=== PATIENT | male | born 2000 | race African-American/Black ===

== ENCOUNTER 2020-03-14 10:31 | Outpatient (REF) | payer BC, SELFPAY | END 2020-03-14 10:32 | disposition home or self-care (01) | LOC: HO.WFDLDS 10:31 | PROVIDERS: Visit Provider Internal Medicine | DX: Z20.822 Contact with and (suspected) exposure to COVID-19 (principal) | CPT/HCPCS: 36415; C9803; U0003 ==

== ENCOUNTER 2020-05-07 11:18 | Outpatient (REF) | payer BC, SELFPAY ==
[2020-05-07 12:27] LABS: Alanine Aminotransferase 27 U/L (0-40); Albumin Level 4.9 g/dL (3.5-5.0); Alkaline Phosphatase 55 U/L (39-117); Anion Gap 14 (12-20); Aspartate Amino Transferase 29 U/L (5-37); Bilirubin Total 1.4 mg/dL (0.0-1.0); Blood Urea Nitrogen 13 mg/dL (9-16); Calcium 9.7 mg/dL (8.4-10.2); Carbon Dioxide 28 mmol/L (22-29); Chloride 104 mmol/L (96-108); Cholesterol 140 mg/dL; Estimated Glomerular Filt Rate > 60; Glucose Fasting 79 mg/dL (60-99); HDL Cholesterol 48 mg/dL; LDL Cholesterol Calculated 78 mg/dl; Potassium 4.6 mmol/L (3.3-5.1); Sodium 141 mmol/L (135-145); Total Protein 7.5 g/dL (6.5-8.0); Triglycerides 74 mg/dL
[2020-05-07 12:28] LABS: Creatinine Urine 235.86 mg/dL; Microalbum/Creatinine Ratio Ur 4.2 ug/mg cr
[2020-05-07 12:35] LABS: TSH reflex Free T4 1.06 uIU/mL (0.32-4.0)
== END 2020-05-07 11:19 | disposition home or self-care (01) ==
LOC: HO.LAB 11:18
PROVIDERS: PCP Family Medicine; Visit Provider Family Medicine
DX: Z00.00 Encounter for general adult medical examination without abnormal findings (principal); I10 Essential (primary) hypertension
CPT/HCPCS: 36415; 80053; 80061; 82043; 84443

== ENCOUNTER 2022-08-18 12:24 | Emergency (ER) | payer OTHER, SELFPAY ==
[2022-08-18 13:06] VITALS: BP 135/82; PULSE 71; RESP 16; TEMP 36.6; O2SAT 99; BMI 25.8
--- NOTE | 2022-08-18 13:08 | ED_ITS ---
HPI - Wound/Laceration General Chief Complaint: Wound/Laceration Stated Complaint: Thumb lac Time Seen by Provider: 08/18/22 16:03 Source: patient Mode of arrival: ambulatory Limitations: no limitations History of Present Illness HPI narrative: 21-year-old male presents for evaluation of a laceration to his left thumb. Patient reports that he works for [employer] He was trying to close the docking doors He states that he reached up because they were jammed? I sliced my left thumb on the door. Unknown last tetanus. He sustained a small laceration left thumb along the interphalangeal joint. Related Data Home Medications Medication Instructions Recorded Confirmed No Known Home Meds 03/20/20 03/20/20 Allergies Allergy/AdvReac Type Severity Reaction Status Date / Time Seasonal Allergies Allergy Mild Itchy Verified 08/18/22 13:06 eyes, stuffy nose Review of Systems Integumentary/Breasts: Skin/Breast: Reports wounds PMFSH Past Medical History Surgical History (Updated 03/20/20 @ 15:27 by MARCE Santillan) No pertinent past surgical history Family History Family History (Updated 03/20/20 @ 15:27 by MARCE Santillan) Mother No problems noted. Father No problems noted. Social History Social History (Updated 03/20/20 @ 15:27 by MARCE Santillan) Alcohol intake: current Alcohol intake frequency: holidays/special occasions only Advance Directives: No Advance Directives Information Provided: No Physical Exam Vital Signs: Vital Signs: Last Vital Signs Temp 98.5 F 08/18/22 15:52 Pulse 64 08/18/22 15:52 Resp 15 08/18/22 15:52 BP 115/80 08/18/22 15:52 Pulse Ox 98 08/18/22 15:52 O2 Del Method Room Air 08/18/22 15:52 BMI result Body Mass Index 25.8 Const: General: healthy appearing, comfortable, no acute distress, alert and awake Nutritional Appearance: well nourished Orientation/consciousness: patient oriented x3 HEENT: Head: Yes normocephalic and Yes atraumatic Eyes: Eyelids: Yes eyelids normal Conjunctivae: conjunctivae normal Sclerae: sclerae normal Corneas: corneas normal Pupils: Equal, round and reactive pupils present EOM: EOMs intact bilaterally Resp: Effort & Inspection: normal respiratory effort, able to speak in complete sentences and not labored Skin: Other: Patient has a 2 cm curvilinear laceration, partial thickness to left on the ulnar side the interphalangeal joint. No active bleeding General skin exam: elasticity normal Neuro: General: patient oriented x3 Cranial nerves: Yes Equal, round and reactive pupils present and Yes Bilaterally intact EOM present Cognition (Neuro): normal cognition Course Course Course Narrative: RME - 21 yo right hand dominant male presents to the ER for evaluation of a laceration to the right thumb sustained at work this morning on a metal door. Good ROM. No need for x-ray Plan: suture repair, Tdap. Medications Administered Discontinued Medications Generic Name Dose Route Start Last Admin Trade Name Freq PRN Reason Stop Dose Admin Diphtheria/Tetanus/Acell Pertussis 0.5 ml 08/18/22 13:08 08/18/22 14:58 Diphth,Pertus(Acell),Tet Adult 0.5 Ml Syringe IM 08/18/22 13:09 0.5 ml .ONCE ONE Administration Lidocaine HCl 4 ml 08/18/22 16:23 08/18/22 16:45 Lidocaine Hcl 1 % Mpf 2 Ml Vial INFILTRATI 08/18/22 16:24 4 ml ONCE ONE Administration Medical Decision Making Medical Decision Making [facility] Narrative: Patient is a small laceration, it is fairly superficial, were given his over a joint I discussed with the patient and recommended sutures which she is agreeable to. See procedure note for wound closure. I did discuss imaging with the patient however the patient is adamant was not a crush injury and was simply a laceration, so no x-ray was ordered. Differential Diagnosis Laceration Skin tear Puncture wound Abrasion Procedures Laceration Laceration 1: Site: hand Side (If applicable): left (thumb) Size (cm): 2 Description: linear (Curvilinear) Depth: simple, single layer Local Anesthetic: lidocaine 1% Amount of anesthesia used (mL): 1 Pre-repair: wound explored Skin layer closed with: nylon Size (cm): 5-0 Number of sutures: 3 Discharge Plan Discharge Clinical Impression: Laceration of left thumb Patient Disposition: Home, Self-Care Instructions: Finger Laceration (ED) Additional Instructions: You had 3 sutures placed today Your sutures can be removed in 7-10 days. Keep the area clean and dry until then Your tetanus was updated today and is good for 10 years Follow-up with your primary doctor Prescriptions: No Action No Known Home Meds Stand Alone Forms: Work/School Release
[2022-08-18] MEDS: Diphth,Pertus(ACell),Tet Adult 0.5 ML SYRINGE IM (14:58)
[2022-08-18 15:52] VITALS: BP 115/80; PULSE 64; RESP 15; TEMP 36.9; O2SAT 98
[2022-08-18] MEDS: Lidocaine HCl 1 % MPF 2 ML VIAL 4 ML INFILTRATI (16:45)
== END 2022-08-18 17:52 | disposition home or self-care (01) ==
PROVIDERS: Emergency Provider Emergency Medicine
DX: S61.012A Laceration without foreign body of left thumb without damage to nail, initial encounter (principal); W45.8XXA Other foreign body or object entering through skin, initial encounter; Y93.89 Activity, other specified; Y92.59 Other trade areas as the place of occurrence of the external cause; Y99.0 Civilian activity done for income or pay
CPT/HCPCS: 12001; 90471; 90715; 99283; 99284